=== PATIENT | male | born 1965 | race Caucasian/White ===

== ENCOUNTER 2021-05-02 08:03 | Day surgery (SDC) | payer MEDICARE ==
[2021-04-27 10:10] VITALS: BMI 33.3
[~2021-05-02 08:03] MED LIST: LACTATED RINGERS 1,000 ML IV SCH
[2021-05-02 08:35] VITALS: TEMP 97.1
[2021-05-02] MEDS ORDERED: ePHEDrine 50 MG/ML 1 ML AMP ONE (09:35)
[2021-05-02] MEDS ORDERED: LIDOCAINE 1% INJ 10MG/ML (20 ML MDV) ONE (09:35)
[2021-05-02] MEDS ORDERED: PROPOFOL 10 MG/ML 20 ML VIAL IV ONE (09:35)
--- NOTE | 2021-05-02 09:59 | P.PCN ---
Date of Procedure: 05/02/21 Procedure(s) Performed: BRIEF HISTORY: Patient is a 55-year-old pleasant white scheduled for an elective colonoscopy as a part of screening for colorectal neoplasia. PROCEDURE PERFORMED: Colonoscopy. PREOPERATIVE DIAGNOSIS: Screening for colon cancer IV sedation per Anesthesia. PROCEDURE: After informed consent was obtained, the patient, was brought into the endoscopy unit. IV sedation was administered by Anesthesia under continuous monitoring. Digital rectal examination was normal. Initially the Olympus CF-160 flexible video colonoscope was then inserted in the rectum, gradually advanced into the cecum without any difficulty. Careful examination was performed as the scope was gradually being withdrawn. Ileocecal valve and the appendiceal orifice were visualized and appeared normal. Prep was excellent. Mucosa of the cecum, ascending colon, transverse colon, descending colon, sigmoid colon, and rectum appeared normal. Retroflexion was performed in the rectum and no lesions were seen. The patient tolerated the procedure well. IMPRESSION: Normal-appearing colon from rectum to cecum with no evidence of colorectal neoplasia . RECOMMENDATIONS: Findings of this examination were discussed with the patient as well as his family. He was advised to have a repeat screening colonoscopy in 10 years..
[2021-05-02 10:18] VITALS: BP 123/76; PULSE 73; RESP 18
== END 2021-05-02 10:42 | disposition home or self-care (01) ==
LOC: ORWHC2ENDO 08:03
PROVIDERS: ATTEND Internal Medicine Gastroenterology
DX: Z12.11 Encounter for screening for malignant neoplasm of colon (principal)
CPT/HCPCS: J2001; J2704; G0121

== ENCOUNTER → 2023-09-13 | Outpatient (CLI) | payer MEDICARE, OTHER ==
--- NOTE | 2023-09-13 09:41 | US ---
EXAMINATION TYPE: US kidneys/renal and bladder DATE OF EXAM: 09/13/2023 COMPARISON: NONE CLINICAL INDICATION: Male, 58 years old with history of R944 ABN KIDNEY FUNCTION; EXAM MEASUREMENTS: Right Kidney: 9.7 x 4.4 x 4.6 cm Left Kidney: 10.9 x 4.2 x 4.7 cm Right Kidney: wnl Left Kidney: wnl Bladder: wnl Bilateral Jets seen: yes There is no evidence for hydronephrosis at this point in time. No nephrolithiasis is seen. No latanya s are identified. The urinary bladder is anechoic. Bilateral ureteral jets are seen IMPRESSION: No evidence for obstructive uropathy.
== END | disposition home or self-care (01) ==
LOC: RADUSWWP 08:30
PROVIDERS: ATTEND Family Medicine
DX: R94.4 Abnormal results of kidney function studies (principal)
CPT/HCPCS: 76770

== ENCOUNTER 2024-08-24 21:54 | Emergency (ER) | payer MEDICARE ==
[2024-08-24 22:05] VITALS: TEMP 97.6
--- NOTE | 2024-08-24 22:50 | ED ---
Skin/Abscess/FB HPI - General Chief complaint: Skin/Abscess/Foreign Body Stated complaint: Red bety on right leg / tingling Time Seen by Provider: 08/24/24 22:48 Source: patient, RN notes reviewed Mode of arrival: ambulatory Limitations: no limitations - History of Present Illness Initial comments: 59-year-old male presenting for right lower extremity redness x 1 day. States he was working outside in his yard today and afterwards began to experience a painful, red, circular on the right lower extremity. Also reports there is some mild redness on the left lower extremity as well. Denies injury or trauma. Denies history of blood clots. Denies blood thinners. Denies chest pain or shortness of breath. - Related Data Home Medications Medication Instructions Recorded Confirmed Aspirin 81 mg PO DAILY 04/27/21 04/27/21 Enalapril [Vasotec] 20 mg PO QAM 04/27/21 04/27/21 [place]-3 Fatty Acids/Fish Oil [Fish 1 each PO DAILY 04/27/21 04/27/21 Oil 1,000 mg Softgel] Sertraline [Zoloft] 50 mg PO DAILY 04/27/21 04/27/21 Sertraline [Zoloft] 100 mg PO DAILY 04/27/21 04/27/21 amLODIPine [Norvasc] 10 mg PO QAM 04/27/21 04/27/21 Previous Rx's Medication Instructions Recorded Hydrocortisone Oint 1 applic TOPICAL BID #28 gm 08/25/24 [Hydrocortisone 2.5% Oint] predniSONE 40 mg PO DAILY #20 tab 08/25/24 Allergies Allergy/AdvReac Type Severity Reaction Status Date / Time No Known Allergies Allergy Verified 08/24/24 22:05 Review of Systems ROS Statement: Those systems with pertinent positive or pertinent negative responses have been documented in the HPI. ROS Other: All systems not noted in ROS Statement are negative. Past Medical History Past Medical History: Hypertension Additional Past Medical History / Comment(s): Learning disability. Hx Covid 03/28. History of Any Multi-Drug Resistant Organisms: None Reported Additional Past Surgical History / Comment(s): Circumcision 8-10 yrs ago, eye surgery. Past Anesthesia/Blood Transfusion Reactions: No Reported Reaction Past Psychological History: No Psychological Hx Reported Smoking Status: Never smoker Past Alcohol Use History: None Reported Past Drug Use History: None Reported - Past Family History Father Family Medical History: Cancer Additional Family Medical History / Comment(s): Skin cancer. Sister(s) Family Medical History: Cancer Additional Family Medical History / Comment(s): One sister had skin cancer, anot her sister had throat cancer and another sister has breast cancer. General Exam - General Exam Comments Initial Comments: Visual Physical Exam Vital signs reviewed General: Well-appearing, nontoxic, no acute distress. Head: Normocephalic, atraumatic Eyes: PERRLA, EOMI ENT: Airway patent Chest: Nonlabored breathing Skin: No visual rash, normal skin tone Neuro: Alert and oriented 3 Musculoskeletal: No gross abnormalities Limitations: no limitations General appearance: alert, in no apparent distress Head exam: Present: atraumatic, normocephalic, normal inspection Eye exam: Present: normal appearance, PERRL, EOMI. Absent: scleral icterus, conjunctival injection, periorbital swelling Right Upper Leg exam: Present: normal inspection, full ROM. Absent: tenderness, swelling Knee exam: Present: normal inspection, full ROM. Absent: tenderness, swelling Lower Leg exam: Present: full ROM, erythema. Absent: normal inspection (There is a erythematous, circular rash with distinct margins present on medial aspect of right lower leg. No tenderness to palpation or drainage. No warmth.), tenderness, swelling, abrasion, palpable cord, Homans' sign Ankle exam: Present: normal inspection, full ROM. Absent: tenderness, swelling Foot/Toe exam: Present: normal inspection, full ROM. Absent: tenderness, swelling Neurovascular tendon exam: Present: no vascular compromise. Absent: pulse deficit, abnormal cap refill, sensory deficit Neurological exam: Present: alert, oriented X3 Psychiatric exam: Present: normal affect, normal mood Skin exam: Present: warm, dry, intact, normal color. Absent: rash Course Vital Signs 08/24/24 22:01 Temperature 97.6 F Pulse Rate 85 Respiratory 16 Rate Blood Pressure 130/78 O2 Sat by Pulse 95 Oximetry Medical Decision Making - Medical Decision Making I completed the quick note portion of this chart signed Melissa Montoya PA-C Was pt. sent in by a medical professional or institution (, [facility], [facility]INUITY PERSON, urgent care, hospital, or halfway...) When possible be specific @ -No Did you speak to anyone other than the patient for history (EMS, parent, family, police, friend...)? What history was obtained from this source @ -No Did you review nursing and triage notes (agree or disagree)? Why? @ -I reviewed and agree with nursing and triage notes Were old charts reviewed (outside hosp., previous admission, EMS record, old EKG, old radiological studies, urgent care reports/EKG's, halfway records)? Report findings @ -No old charts were reviewed Differential Diagnosis (chest pain, altered mental status, abdominal pain women, abdominal pain men, vaginal bleeding, weakness, fever, dyspnea, syncope, headache, dizziness, GI bleed, back pain, seizure, CVA, palpatations, mental health, musculoskeletal)? @ -Differential Musculoskeletal Contact dermatitis, muscular strain, contusion, ligament sprain, fracture, arthritis, septic arthritis, bursitis, cellulitis, muscle spasm, nerve compression, DVT, arterial occlusion, herpes zoster, electrolyte abnormality, tumor.... This is not meant to be in all inclusive list EKG interpreted by me (3pts min.). @ -None X-rays interpreted by me (1pt min.). @ -None done CT interpreted by me (1pt min.). @ -None done U/S interpreted by me (1pt. min.). @ -Ultrasound right lower extremity negative for DVT What testing was considered but not performed or refused? (CT, X-rays, U/S, labs)? Why? @ -None What meds were considered but not given or refused? Why? @ -None Did you discuss the management of the patient with other professionals (professionals i.e. , PA, CONTINUITY PERSON, lab, RT, psych nurse, hospice social worker, service observer chief, teacher, parole or probation officer, sample case porter)? Give summary @ -No Was smoking cessation discussed for >3mins.? @ -No Was critical care preformed (if so, how long)? @ -No Were there social determinants of health that impacted care today? How? (Homelessness, low income, unemployed, alcoholism, drug addiction, transportation, low edu. Level, literacy, decrease access to med. care, residential, rehab)? @ -No Was there de-escalation of care discussed even if they declined (Discuss DNR or withdrawal of care, Hospice)? DNR status @ -No What co-morbidities impacted this encounter? (DM, HTN, Smoking, COPD, CAD, Cancer, CVA, ARF, Chemo, Hep., AIDS, mental health diagnosis, sleep apnea, morbid obesity)? @ -None Was patient admitted / discharged? Hospital course, mention meds given and route, prescriptions, significant lab abnormalities, going to OR and other pertinent info. @ -Discharged. 59-year-old male presenting for rash extremity after doing yard work outside. Neurovascularly intact. Ultrasound right lower extremity negative for DVT. Given history and physical exam, I highly suspect contact dermatitis. Patient was provided with outpatient prescription for steroid and hydrocortisone ointment. Also advised to use Benadryl and Tylenol/ibuprofen. Appropriate return precautions and supportive care/follow-up care discussed. Case was discussed with my ED attending Dr. Okeefe Undiagnosed new problem with uncertain prognosis? @ -No Drug Therapy requiring intensive monitoring for toxicity (Heparin, Nitro, Insulin, Cardizem)? @ -No Were any procedures done? @ -No Diagnosis/symptom? @-Contact dermatitis of right lower extremity Acute, or Chronic, or Acute on Chronic? @ -Acute Uncomplicated (without systemic symptoms) or Complicated (systemic symptoms)? @ -uncomplicated Side effects of treatment? @ -No Exacerbation, Progression, or Severe Exacerbation? @ -No Poses a threat to life or bodily function? How? (Chest pain, [place], [place], pneumonia, PE, COPD, DKA, ARF, appy, cholecystitis, CVA, Diverticulitis, Homicidal, Suicidal, threat to staff... and all critical care pts) @ -No Disposition Clinical Impression: Contact dermatitis of lower leg Disposition: HOME SELF-CARE Condition: Stable Instructions (If sedation given, give patient instructions): Contact Dermatitis (ED) Additional Instructions: Take prednisone as directed. Take Benadryl every 6 hours. Alternate ibuprofen and Tylenol every 4 hours for pain. Apply hydrocortisone ointment twice daily to the affected area. Please return if rash worsens or you develop a fever. Please return to the Emergency Department if symptoms worsen or any other concerns. Prescriptions: Hydrocortisone Oint [Hydrocortisone 2.5% Oint] 1 applic TOPICAL BID #28 gm predniSONE 40 mg PO DAILY #20 tab Is patient prescribed a controlled substance at d/c from ED?: No Referrals: Gala Hay DO [Primary Care Provider] - 1-2 days Time of Disposition: 03:26
--- NOTE | 2024-08-25 01:48 | US ---
Exam: US VENOUS RIGHT LOWER EXTREMITY DATE OF EXAM: 08/25/2024 12:20 AM COMPARISON: NONE CLINICAL INDICATION: Male, 59 years old with history of pain; red spot at patients ankle. no pain. no hx dvt. no swelling, Pain TECHNIQUE: The lower extremity deep venous system is examined utilizing real time linear array sonography with graded compression, color doppler sonography, and spectral doppler. 24 images SIDE PERFORMED: Right FINDINGS: VESSELS IMAGED: Common Femoral Vein Deep Femoral Vein Greater Saphenous Vein * Femoral Vein Popliteal Vein Small Saphenous Vein * Proximal Calf Veins (* superficial vessels) Right Leg: Negative for DVT, Color Doppler imaging shows patency of the vessels. Spectral waveforms are within normal limits. Impression: No DVT
[2024-08-25 03:37] VITALS: BP 128/79; PULSE 111; RESP 20
== END 2024-08-25 03:30 | disposition home or self-care (01) ==
LOC: EC 21:54
DX: L25.9 Unspecified contact dermatitis, unspecified cause (principal)
CPT/HCPCS: 99283

== ENCOUNTER → 2024-09-18 | Outpatient (CLI) | payer MEDICARE ==
--- NOTE | 2024-09-18 17:50 | US ---
EXAMINATION TYPE: US abdomen limited DATE OF EXAM: 09/18/2024 COMPARISON: Renal US 09/13/2023 CLINICAL INDICATION: Male, 59 years old with history of R94.5 ABNORMAL RESULTS OF LIVER FUNCTION STUD IES; Pain with urination and defecation; Hx HTN; Patient denies any other signs, symptoms, or relevan t history TECHNIQUE: Grayscale and color Doppler imaging of the right upper quadrant was performed. FINDINGS: EXAM MEASUREMENTS: Liver Length: 18.9 cm a normal less than 15.5 cm. Gallbladder Wall: 0.2 cm CBD: 0.5 cm Right Kidney: 10.5 x 4.4 x 4.5 cm SHIPPING INSPECTOR NOTES: Pancreas: Tail obscured by overlying bowel gas Liver: wnl Gallbladder: wnl - not fully distended, patient is properly NPO Evidence for sonographic Teran's sign: No CBD: wnl Right Kidney: wnl IMPRESSION: 1. [facility], , 09/18/2024 5:48 PM
== END | disposition home or self-care (01) ==
LOC: RADUSWWP 08:13
PROVIDERS: ATTEND Family Medicine
DX: R16.0 Hepatomegaly, not elsewhere classified (principal); R94.5 Abnormal results of liver function studies
CPT/HCPCS: 76705